=== PATIENT | female | born 1995 | race African-American/Black ===

== ENCOUNTER 2019-09-14 09:52 | Emergency (ER) | payer OTHER, SELFPAY ==
--- NOTE | ~2019-09-14 | XR_ITS ---
EXAMINATION: XR ankle LT min 3V DATE: 09/14/2019 10:43 INDICATION: Lateral left ankle pain TECHNIQUE: Anteroposterior, oblique, mortise, and lateral views of the left ankle were obtained. COMPARISON: None. FINDINGS: Alignment is normal. No fracture. Joint spaces are well maintained. No ankle joint effusion. The so ft tissues are unremarkable. IMPRESSION: 1. Negative left ankle radiographs. Reviewed, dictated and finalized at location A. [employer]
[2019-09-14 10:04] VITALS: BP 121/77; PULSE 83; RESP 16; TEMP 37; O2SAT 99
--- NOTE | 2019-09-14 10:09 | ED.GENADULT ---
HPI - General Adult General Chief complaint: Extremity Injury, Lower Stated complaint: Left Foot Pain Source: patient and RN notes reviewed Mode of arrival: ambulatory Limitations: no limitations History of Present Illness HPI narrative: This is a 24 years old female presents to the office for an evaluation of left foot/ankle swelling Intermittently for 1 year, worse for the last several days. Swelling is usually worse after prolong standing. Denies direct trauma/injury recently. However, she stands on her feet about 8hours/day when she is at work. She has not seen her primary care doctor for this condition. Denies recent surgery, prolonged travel, or DVT. Swelling is usually better if she can sit or prop her legs up. She has tried biofreeze cream which made it worse. She has been alternate tylenol and ibuprofen at times for pain. Related Data Home Medications Medication Instructions Recorded Confirmed No Home Medications 09/14/19 09/14/19 Allergies Allergy/AdvReac Type Severity Reaction Status Date / Time No Known Allergies Allergy Verified 09/14/19 10:07 Review of Systems Review of Systems: Narrative: CONSTITUTIONAL: Denies fever or feeling ill CARDIOVASCULAR: Denies chest pain. RESPIRATORY: Denies dyspnea GASTROINTESTINAL: Denies nausea, vomiting GENITOURINARY: Denies urinary symptoms SKIN: Denies rash MUSCULOSKELETAL: Reports left ankle swelling yesterday (per picture that she took on her phone); but it is not currently. NEUROLOGIC: Denies lightheaded PMFSH Social History Social History Gender identity (if verbalized by the patient): Female Comments At time of signature, I agree with nursing past medical, surgical, social and family history. There is no relevant family history pertinent to the presenting complaint. Exam Narrative: Exam Narrative: GENERAL: This is a well-nourished, well-developed patient, in no apparent distress. CARDIOVASCULAR: Regular rate and rhythm without murmurs, gallops, or rubs. RESPIRATORY: Clear to auscultation. Breath sounds equal bilaterally. No wheezes, rales, or rhonchi. SKIN: warm, intact with no suspicious lesions or rash, good texture and turgor. NEURO: awake, alert, and oriented to person, place and time. There were no obvious focal neurologic abnormalities. Steady gait EXTREMITIES: Left ankle and foot appears normal when compared to right ankle and foot. There is no tenderness to palpation of ankles/feet. ROM is normal. There is no deformity. The foot and toes are warm and well-perfused. Sensation to pain and light touch is intact.The skin is intact. Almond Coma Scale Eye Opening: Spontaneous 4 Mulu Coma Scale Motor: Obeys Commands 6 Mulu Coma Scale Verbal: Oriented 5 Course Vital Signs Vital signs: Vital Signs Temperature 98.6 F 09/14/19 10:04 Pulse Rate 83 09/14/19 10:04 Respiratory Rate 16 09/14/19 10:04 Blood Pressure 121/77 09/14/19 10:04 Pulse Oximetry 99 09/14/19 10:04 Temperature 98.6 F 09/14/19 10:04 Pulse Rate 83 09/14/19 10:04 Respiratory Rate 16 09/14/19 10:04 Blood Pressure 121/77 09/14/19 10:04 Pulse Oximetry 99 09/14/19 10:04 Medical Decision Making MDM Narrative Medical decision making narrative: X-ray to rule out malignancy or occult fracture Differential Diagnosis Differential Diagnosis: Peripheral vascular edema, Dependent edema, fracture, Osteosarcoma Medical Records Medical records reviewed: Yes I reviewed the patient's medical records. Vital Signs Vital Signs: Vital Signs Temperature 98.6 F 09/14/19 10:04 Pulse Rate 83 09/14/19 10:04 Respiratory Rate 16 09/14/19 10:04 Blood Pressure 121/77 09/14/19 10:04 Pulse Oximetry 99 09/14/19 10:04 Temperature 98.6 F 09/14/19 10:04 Pulse Rate 83 09/14/19 10:04 Respiratory Rate 16 09/14/19 10:04 Blood Pressure 121/77 09/14/19 10:04 Pulse Oximetry 99
== END 2019-09-14 11:04 | disposition home or self-care (01) ==
PROVIDERS: Emergency Provider Nurse Practitioner; PCP Family Medicine
DX: M25.471 Effusion, right ankle (principal)
CPT/HCPCS: 73610; 99213; G0463

== ENCOUNTER 2021-06-29 14:38 | Emergency (ER) | payer OTHER, SELFPAY ==
[2021-06-29 14:40] VITALS: BP 148/97; PULSE 97; RESP 18; TEMP 36.2; O2SAT 100
--- NOTE | 2021-06-29 14:53 | ED.DENTAL ---
HPI - Dental/Oral General Chief complaint: Dental/Oral Stated complaint: mouth pain Time Seen by Provider: 06/29/21 14:44 Source: RN notes reviewed History of Present Illness HPI Narrative: Patient presents emergency department from home for dental pain. Patient states that she has had left lower pain in the molar region for the past 2 days she states she had intermittent pain in that region for some time but pain has been worse for the past 2 days states it hurts worse to chew with pain rating to the lower jaw up towards the ear patient states she still has her wisdom teeth and was told at her age that there is no reason to remove her wisdom teeth she states she has been taking ibuprofen at home for the pain she denies any other trauma or injury denies any shortness of breath or fever Related Data Allergies Allergy/AdvReac Type Severity Reaction Status Date / Time No Known Allergies Allergy Verified 09/14/19 10:07 Review of Systems Review of Systems: Gen.: Denies fevers or chills HEENT: See HPI Respiratory: Denies shortness of breath Neuro: Denies headache Skin: Denies rash Endo: Denies DM PMFSH Past Medical History Medical History (Updated 06/29/21 @ 14:56 by Jhoan Estrada DO) Patient denies significant medical history Social History Social History (Updated 06/29/21 @ 14:55 by Jhoan Estrada DO) Smoking status: Never smoker Gender identity (if verbalized by the patient): Female Exam Narrative: APPEARANCE: No acute distress, nontoxic, resting in bed HEENT: Normocephalic, atraumatic, TMs clear bilaterally, nares patent, oral mucosa moist, airway patent, tooth #17 is tender to palpation with tenderness along the posterior and lateral gum with mild erythema no fluctuance tooth #17 is partially erupted there is no active drainage there is no sublingular or submandibular tenderness airway is patent no erythema exudate posterior pharynx RESPIRATORY: No respiratory distress MUSCULOSKELETAl: Moves all extremities. NEURO: Awake and alert. Following commands, speech normal, no focal deficits SKIN:: Warm, dry. Normal Color PSYCHIATRIC: Normal affect/mood Course Course Emergency Course: Discussed with patient results of workup and diagnosis. Discussed need for follow-up with primary care, proper use of medication, and reasons to return to the emergency department. Patient understands and agrees to current treatment plan. Patient states she does have a dentist she can follow-up with Vital Signs Vital signs: Vital Signs Temperature 97.1 F L 06/29/21 14:40 Pulse Rate 97 06/29/21 14:40 Respiratory Rate 18 06/29/21 14:40 Blood Pressure 148/97 H 06/29/21 14:40 Pulse Oximetry 100 06/29/21 14:40 Temperature 97.1 F L 06/29/21 14:40 Pulse Rate 97 06/29/21 14:40 Respiratory Rate 18 06/29/21 14:40 Blood Pressure 148/97 H 06/29/21 14:40 Pulse Oximetry 100 06/29/21 14:40 Discharge Plan Discharge Clinical Impression: Odontalgia Patient Disposition: Home, Self-Care Condition: Stable Instructions: Antibiotic Form, Toothache (ED) Additional Instructions: Return for creasing pain fever, shortness of breath or any other symptoms or concern. Follow-up with your dentist in 1 to 2 days for further treatment and evaluation Prescriptions: New penicillin V potassium 500 mg tablet 500 mg PO TID Qty: 30 RF: 0 ibuprofen [IBU] 600 mg tablet 600 mg PO Q6H PRN (Reason: pain) Qty: 20 RF: 0 Follow-up/Referrals: Cindy,Aury Moreno MD [Primary Care Provider] - Stand Alone Forms: Work/School Release IP Time of Disposition: 14:56
[2021-06-29] MEDS: PENICILLIN V POTASSIUM 250 MG TABLET 500 MG PO (15:06)
[2021-06-29] MEDS: HYDROcodone/acetaminophen (*CRX) 5-325 MG TABLET 1 TAB PO (15:06)
== END 2021-06-29 15:13 | disposition home or self-care (01) ==
PROVIDERS: Emergency Provider Emergency Medicine; PCP Family Medicine
DX: K08.89 Other specified disorders of teeth and supporting structures (principal)
CPT/HCPCS: 99283; A9270